=== PATIENT | male | born 1990 | race Caucasian/White ===

== ENCOUNTER 2018-11-20 17:01 | Emergency (ER) | payer OTHER, SELFPAY ==
[2018-11-20 17:03] VITALS: BP 137/76; PULSE 88; RESP 20; TEMP 36.5; O2SAT 97; BMI 29.2
--- NOTE | 2018-11-20 17:13 | DI.US.S_ITS ---
PROCEDURE: US PERIPH VENOUS LOW EXTREM RT INDICATIONS: flying, + right lower extrem pain swelling/ please go to US TECHNIQUE: Real-time imaging, as well as color and pulse Doppler interrogation, were performed of the lower extremity deep veins from the inguinal ligament to the popliteal fossa. COMPARISON: None. FINDINGS: There is occlusive thrombus within the popliteal vein extending to the posterior tibial vein. IMPRESSION: Right lower extremity DVT. Dictated by: Jass Jovel M.D. on 11/20/2018 at 18:25 Approved by: Jass Jovel M.D. on 11/20/2018 at 18:25
--- NOTE | 2018-11-20 20:10 | ED_ITS ---
HPI - Extremity Problem General Chief complaint: Extremity Problem,Nontraumatic Stated complaint: RT LEG PAIN - NO KNOWN INJURY Time Seen by Provider: 11/20/18 20:10 Related Data Home Medications Medication Instructions Recorded Confirmed No Known Home Medications 11/20/18 11/20/18 Allergies Allergy/AdvReac Type Severity Reaction Status Date / Time No Known Drug Allergies Allergy Verified 11/20/18 17:11 [facility] Social History Smoking Status: Current every day smoker Social History Smoking Status: Current every day smoker Exam Initial Vital Signs Initial Vital Signs: Vital Signs Temperature 97.7 F 11/20/18 17:03 Pulse Rate 88 11/20/18 17:03 Respiratory Rate 20 11/20/18 17:03 Blood Pressure 137/76 11/20/18 17:03 Pulse Oximetry 97 11/20/18 17:03 Course Orders Ordered: ED Orders 11/20/18 17:13 US periph venous low extrem rt Stat Vital Signs - 8 hr 11/20/18 17:03 Temperature 97.7 F Pulse Rate 88 Respiratory Rate 20 Blood Pressure 137/76 Pulse Oximetry 97 Discharge Plan Departure Prescriptions: No Action No Known Home Medications RF: 0
--- NOTE | 2018-11-20 20:12 | PC.NURSE ---
called from waiting room: no answer.
--- NOTE | 2018-11-20 20:15 | PC.NURSE ---
Called patient @ number listed and left message to call ED. I then emailed patient at email listed and asked him to call the ED and speak w/ charge nurse or provider on duty. Dr. Medina made aware.
--- NOTE | 2018-11-20 20:19 | PC.NURSE ---
at 2004 I was unable to locate him,Hina RAI placed call to his cell.
[2018-11-20 20:27] VITALS: PULSE 60
--- NOTE | 2018-11-20 20:43 | ED_ITS ---
HPI - Extremity Problem General Chief complaint: Extremity Problem,Nontraumatic Stated complaint: RT LEG PAIN - NO KNOWN INJURY Time Seen by Provider: 11/20/18 20:10 Source: patient Mode of arrival: ambulatory Limitations: no limitations History of Present Illness HPI Narrative: Patient is an otherwise healthy 28-year-old male who was sent over today by his [facility] for a right lower extremity DVT ultra sound. He went to go see his medical because he was having pain and swelling in his right lower extremity. He just recently had a 6 hour flight from [place] back to [place]. He denies any chest pain or shortness of breath. Has never had a blood clot in the past. He obtain that outpatient ultrasound which was resulted positive was told to come to the emergency department. Related Data Previous Rx's Medication Instructions Recorded rivaroxaban [Xarelto] 15 mg PO BID 21 Days #42 tab 11/20/18 Allergies Allergy/AdvReac Type Severity Reaction Status Date / Time No Known Drug Allergies Allergy Verified 11/20/18 17:11 Review of Systems Constitutional Denies fever(s) Cardiovascular Denies chest pain and Denies dyspnea Respiratory Denies dyspnea Gastrointestinal Gastrointestinal: Denies abdominal pain Musculoskeletal Comments: Right lower extremity pain and swelling Integumentary/Breasts Denies rash Neurologic Denies behavioral changes Psychiatric Denies behavioral changes Hematologic/Lymphatic Denies easy bleeding and Denies easy bruising [facility] Medical History Healthy adult (Acute) Social History Smoking Status: Current every day smoker Social History Smoking Status: Current every day smoker Exam Initial Vital Signs Initial Vital Signs: Vital Signs Temperature 97.7 F 11/20/18 17:03 Pulse Rate 88 11/20/18 17:03 Respiratory Rate 20 11/20/18 17:03 Blood Pressure 137/76 11/20/18 17:03 Pulse Oximetry 97 11/20/18 17:03 Resp Effort & Inspection: normal respiratory effort Cardio Rate: regular rate Skin Lesions: no lesions Rashes: no rashes Neuro General: alert and awake Cognition: normal cognition Speech: speech normal Gait: normal gait Extrem Other: Right knee and right ankle unremarkable. Right hip unremarkable. Patient does have swelling to the right lower extremity from the knee to his ankle. Psych Appearance: grossly normal and well kempt Course Orders Ordered: ED Orders 11/20/18 17:13 US periph venous low extrem rt Stat 11/20/18 20:58 Basic Metabolic Panel Stat Complete Blood Count AUTO DIFF Stat Partial Thromboplastin Time Stat Prothrombin Time INR Stat Discontinued Medications Rivaroxaban (Xarelto) 15 mg PO NOW ONE Stop: 11/20/18 20:46 Last Admin: 11/20/18 20:53 Dose: Not Given Rivaroxaban (Xarelto) 15 mg PO NOW ONE Stop: 11/20/18 20:52 Last Admin: 11/20/18 20:57 Dose: 15 mg Vital Signs - 8 hr 11/20/18 17:03 11/20/18 20:27 11/20/18 20:59 Temperature 97.7 F Pulse Rate 88 72 Pulse Rate [Right Dorsalis Pedis] 60 Respiratory Rate 20 14 Blood Pressure 137/76 Blood Pressure [Right Arm] 128/72 Pulse Oximetry 97 98 MDM - Extremity (Nontraumatic) Lab Data Result diagrams: 11/20/18 20:58 11/20/18 20:58 Lab Results 11/20/18 11/20/18 11/20/18 Range/Units 20:58 20:58 20:58 WBC 10.8 (4.5-11.0) X10^3/uL RBC 5.01 (4.5-5.9) X10^6/uL Hgb 15.3 (13.5-17.5) g/dL Hct 44.8 (41-53) % MCV 89.4 (80-100) fL MCH 30.6 (26-34) PG MCHC 34.2 (30-36) % RDW 12.2 (11.6-14.8) % Plt Count 271 (150-400) X10^3/uL Neut % (Auto) 64.6 (50-75) % Lymph % (Auto) 26.3 (25-40) % [place] % (Auto) 4.9 (3-14) % Eos % (Auto) 3.6 (2-4) % Baso % (Auto) 0.6 (0-2) % Neut # (Auto) 6900 (7988-9068) /uL Lymph # (Auto) 2800 (5111-4444) /uL [place] # (Auto) 500 (0-900) /uL Eos # (Auto) 400 (0-450) /uL Baso # (Auto) 100 (0-100) /uL PT 11.9 (10.1-12.7) SECONDS INR 1.0 (0.9-1.3) APTT 31 (26.4-36.2) SECONDS Sodium 138 (137-145) mmol/L Potassium 4.1 (3.4-5.1) mmol/L Chloride 101 (98-107) mmol/L Carbon Dioxide 27 (22-32) mmol/L BUN 17 (9-20) mg/dL Creatinine 1.00 (0.66-1.25) mg/dL Estimated GFR > 60.0 (>60) mL/min BUN/Creatinine Ratio 17.0 (6-22) Glucose 155 H (70-100) mg/dL Calcium 9.3 (8.4-10.2) mg/dL Imaging Data Venous US: Radiologist's impression: [address] [address] Ultrasound Report Signed Patient: Betito Elena [facility]#: [id number] : 1990Acct:[id number] Age/Sex: MDate of Service: 11/20/18 Loc: ED Accession Number: [id number] Procedure: US periph venous low extrem rt Ordering Provider: Alyce Harrington MD PROCEDURE: US PERIPH VENOUS LOW EXTREM RT INDICATIONS: flying, + right lower extrem pain swelling/ please go to US TECHNIQUE: Real-time imaging, as well as color and pulse Doppler interrogation, were performed of the lower extremity deep veins from the inguinal ligament to the popliteal fossa. COMPARISON: None. FINDINGS: There is occlusive thrombus within the popliteal vein extending to the posterior tibial vein. IMPRESSION: Right lower extremity DVT. Dictated by: Jass Jovel M.D. on 11/20/2018 at 18:25 Approved by: Jass Jovel M.D. on 11/20/2018 at 18:25 [facility] Narrative Medical decision making narrative: The ultrasound report included in this note is for reference his only. It was ordered by another provider as an outpatient study. The patient has never had a blood clot before. He did recently have a 6 hour flight which is most likely the cause of this DVT. He denies any chest pain or shortness of breath making PE unlikely. Patient was given 1st dose of Xarelto here in the emergency department was given a prescription for this. He was instructed that tomorrow he needed to talk with [place] any work-related restrictions and to change any medication as needed for [facility] pharmacy guidelines. There is no signs of cellulitis in his lower extremity he was given return precautions and follow-up instructions. He expressed understanding and agreement with plan Discharge Plan Departure Patient Disposition: Home Clinical Impression: Deep vein thrombosis of lower extremity Qualifiers: Affected thrombotic vein of extremity: unspecified vein of extremity Chronicity: acute Laterality: right Qualified Code(s): I82.401 - Acute embolism and thrombosis of unspecified deep veins of right lower extremity Discharge Date/Time: 11/20/18 21:14 Interventions: ED Discharge Assessment Last Done: 11/20/18 21:12 Instructions: DI for Deep Vein Thrombosis Activity Restrictions/Additional Instructions: Tomorrow you need to talk with your medical department about the clot in your right lower extremity and also the medications that the [facility] would prefer you to be on. The prescription that you were given today is only for the 1st 21 days of this medication however will need to be continued past that time. Return to the emergency department for any new symptoms to include chest pain, shortness o f breath, blood in her stool, abdominal pain, or any other concerning symptoms. Prescriptions: New Xarelto 15 mg tablet 15 mg PO BID 21 Days Qty: 42 RF: 0
[2018-11-20] MEDS: RIVAROXABAN 10 MG TABLET 15 MG PO (20:57)
[2018-11-20 20:59] VITALS: BP 128/72; PULSE 72; RESP 14; O2SAT 98
[2018-11-20 21:12] LABS: Add Manual Diff / Slide Review NO; Basophils Absolute Auto 100 /uL (0-100); Basophils Percent Auto 0.6 % (0-2); Eosinophils Absolute Auto 400 /uL (0-450); Eosinophils Percent Auto 3.6 % (2-4); Hematocrit 44.8 % (41-53); Hemoglobin 15.3 g/dL (13.5-17.5); Lymphocytes Absolute Auto 2800 /uL (1100-4500); Lymphocytes Percent Auto 26.3 % (25-40); Mean Corpuscular HGB Conc 34.2 % (30-36); Mean Corpuscular Hemoglobin 30.6 PG (26-34); Mean Corpuscular Volume 89.4 fL (80-100); Monocytes Absolute Auto 500 /uL (0-900); Monocytes Percent Auto 4.9 % (3-14); Neutrophils Absolute Auto 6900 /uL (1500-7000); Neutrophils Percent Auto 64.6 % (50-75); Platelet Count 271 X10^3/uL (150-400); Red Blood Cell Count 5.01 X10^6/uL (4.5-5.9); Red Cell Distribution Width 12.2 % (11.6-14.8); White Blood Cell Count 10.8 X10^3/uL (4.5-11.0)
[2018-11-20 21:14] LABS: Prothrombin Time 11.9 SECONDS (10.1-12.7)
[2018-11-20 21:17] LABS: PTT Partial Thromboplastin Tim 31 SECONDS (26.4-36.2)
[2018-11-20 21:26] LABS: Blood Urea Nitrogen 17 mg/dL (9-20); Calcium 9.3 mg/dL (8.4-10.2); Carbon Dioxide 27 mmol/L (22-32); Chloride 101 mmol/L (98-107); Estimated Glomerular Filt Rate > 60.0 mL/min (>60); Glucose 155 mg/dL (70-100); HEMOLYSIS < 15 (0-50); Potassium 4.1 mmol/L (3.4-5.1); Sodium 138 mmol/L (137-145)
== END 2018-11-20 21:14 | disposition home or self-care (01) ==
PROVIDERS: Emergency Provider Emergency Medicine
DX: I82.401 Acute embolism and thrombosis of unspecified deep veins of right lower extremity (principal)
CPT/HCPCS: 36415; 80048; 85025; 85610; 85730; 93971; 99282; 99284

== ENCOUNTER 2018-12-09 15:30 | Emergency (ER) | payer OTHER, SELFPAY ==
[2018-12-09 15:30] VITALS: BP 134/80; PULSE 58; RESP 18; TEMP 36.7; O2SAT 95; BMI 29.8
--- NOTE | 2018-12-09 15:40 | DI.RAD.S_ITS ---
PROCEDURE: XR CHEST 1V INDICATIONS: chest pain TECHNIQUE: One view of the chest was acquired. COMPARISON: [facility], CT, CT ANGIO CHEST PE PROTOCOL, 12/09/2018, 16:15. [facility], US, US PERIPH VENOUS LOW EXTREM RT, 11/20/2018, 17:29. FINDINGS: Surgical changes and devices: None. Lungs and pleura: An incomplete inspiratory result is noted, causing a crowded appearance to the lung markings. No focal infiltrates are seen. No pneumothorax or significant pleural effusions are seen. Mediastinum: Mediastinal contours appear normal. Heart size is normal. Bones and chest wall: No suspicious bony lesions. Overlying soft tissues appear unremarkable. IMPRESSION: Limited portable chest examination, without a significant cardiopulmonary abnormality identified. Dictated by: Arcenio Askew M.D. on 12/09/2018 at 15:33 Approved by: Arcenio Askew M.D. on 12/09/2018 at 15:33
--- NOTE | 2018-12-09 15:41 | DI.CT.S_ITS ---
PROCEDURE: CT ANGIO CHEST PE PROTOCOL INDICATIONS: chest pain, known DVT TECHNIQUE: After the administration of intravenous contrast, 2 mm thick sections acquired from the pulmonary apices to the posterior costophrenic angles. 3-dimensional maximum intensity projection (MIP) coronal and sagittal reformats were then acquired through the thorax. For radiation dose reduction, the following was used: automated exposure control, adjustment of mA and/or kV according to patient size. COMPARISON: [facility], CR, XR CHEST 1V, 12/09/2018, 16:04. Correlation is also made with lower extremity ultrasound dated 11/20/18. FINDINGS: Image quality: Excellent. Pulmonary arteries: Pulmonary arteries are normal in size, and demonstrate no intraluminal filling defects to suggest central pulmonary embolism. Lungs and pleura: Lungs are clear. No pleural effusions or pneumothorax. Central and peripheral airways are patent. Mediastinum: Heart size is normal, without pericardial effusion. No mediastinal or hilar adenopathy. Thoracic aorta is normal in caliber and enhancement. Esophagus is normal in caliber, without hiatal hernia. Bones and chest wall: No suspicious bony lesions. Ribs and thoracic spine appear intact throughout. Thyroid gland demonstrates no significant CT abnormality. No axillary or supraclavicular adenopathy. Abdomen: Visualized upper abdominal solid organs appear normal in the early arterial phase of enhancement. IMPRESSION: Negative for pulmonary embolism. Normal study. Dictated by: Arcenio Askew M.D. on 12/09/2018 at 15:30 Approved by: Arcenio Askew M.D. on 12/09/2018 at 15:31
[2018-12-09 15:56] LABS: Add Manual Diff / Slide Review NO; Basophils Absolute Auto 100 /uL (0-100); Basophils Percent Auto 0.6 % (0-2); Eosinophils Absolute Auto 500 /uL (0-450); Eosinophils Percent Auto 3.3 % (2-4); Hematocrit 44.1 % (41-53); Hemoglobin 15.1 g/dL (13.5-17.5); Lymphocytes Absolute Auto 2700 /uL (1100-4500); Lymphocytes Percent Auto 18.1 % (25-40); Mean Corpuscular HGB Conc 34.2 % (30-36); Mean Corpuscular Hemoglobin 30.5 PG (26-34); Mean Corpuscular Volume 89.2 fL (80-100); Monocytes Absolute Auto 800 /uL (0-900); Monocytes Percent Auto 5.6 % (3-14); Neutrophils Absolute Auto 10700 /uL (1500-7000); Neutrophils Percent Auto 72.4 % (50-75); Platelet Count 272 X10^3/uL (150-400); Red Blood Cell Count 4.95 X10^6/uL (4.5-5.9); Red Cell Distribution Width 12.6 % (11.6-14.8); White Blood Cell Count 14.8 X10^3/uL (4.5-11.0)
[2018-12-09 16:00] VITALS: BP 122/75
[2018-12-09 16:01] LABS: INR 1.6 (0.9-1.3); Prothrombin Time 18.6 SECONDS (10.1-12.7)
[2018-12-09 16:03] LABS: PTT Partial Thromboplastin Tim 36 SECONDS (26.4-36.2)
[2018-12-09 16:08] LABS: Alanine Aminotransferase 30 IU/L (21-72); Albumin 4.4 g/dL (3.5-5.0); Albumin Globulin Ratio 1.4 (1.0-2.8); Alkaline Phosphatase 74 U/L (38-126); Aspartate Aminotransferase 23 IU/L (17-59); Bilirubin Total 0.4 mg/dL (0.2-1.3); Blood Urea Nitrogen 15 mg/dL (9-20); Calcium 9.8 mg/dL (8.4-10.2); Carbon Dioxide 25 mmol/L (22-32); Chloride 106 mmol/L (98-107); Creatine Kinase 77 U/L (55-170); Estimated Glomerular Filt Rate > 60.0 mL/min (>60); Globulin 3.2 g/dL (1.7-4.1); Glucose 101 mg/dL (70-100); HEMOLYSIS < 15 (0-50); Lipase 95 U/L (23-300); Potassium 4.5 mmol/L (3.4-5.1); Sodium 139 mmol/L (137-145); Total Protein 7.6 g/dL (6.3-8.2)
[2018-12-09 16:19] LABS: Troponin I < 0.012 ng/mL (0.01-0.034)
[2018-12-09 17:15] VITALS: BP 121/65; PULSE 59; RESP 18
[2018-12-09 18:13] VITALS: BP 113/67; PULSE 72; RESP 15; O2SAT 96
--- NOTE | 2018-12-09 18:17 | ED.CHESTPAIN ---
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 He denies any recent injury or overuse. He denies associated symptoms such as dizziness, weakness or lightheadedness. He denies cough, shortness of breath or hemoptysis. He denies missing any doses of his medications. His pain started earlier this morning and he states it is sharp and stabbing and worse with use of his right arm and deep breaths. MD complaint: chest pain Related Data Previous Rx's Medication Instructions Recorded rivaroxaban [Xarelto] 15 mg PO BID 21 Days #42 tab 11/20/18 Allergies Allergy/AdvReac Type Severity Reaction Status Date / Time No Known Drug Allergies Allergy Verified 11/20/18 17:11 Review of Systems Constitutional Denies chills, Denies fever(s), Denies lethargy and Denies weakness Eyes Denies change in vision, Denies eye discharge, Denies irritation and Denies loss of vision ENT Ears, Nose, Mouth, and Throat: Denies change in voice, Denies neck pain and Denies sore throat Cardiovascular Reports chest pain, Denies irregular heart rhythm, Denies lightheadedness, Denies palpitations, Denies dyspnea, Denies dyspnea on exertion and Denies orthopnea Respiratory Denies cough, Denies dyspnea, Denies dyspnea on exertion and Denies wheezing Gastrointestinal Gastrointestinal: Denies abdominal pain, Denies change in bowel habits, Denies diarrhea, Denies nausea and Denies vomiting Genitourinary Denies hematuria, Denies flank pain, Denies urinary incontinence and Denies urinary urgency Musculoskeletal Denies neck pain Integumentary/Breasts Denies pruritus, Denies erythema, Denies rash and Denies wounds Neurologic Denies confusion, Denies loss of vision and Denies weakness Psychiatric Denies anxiety, Denies confusion, Denies depression, Denies homicidal ideation and Denies suicidal ideation Endocrine Denies palpitations Hematologic/Lymphatic Denies easy bruising Allergic/Immunologic Denies wheezing [facility] Medical History (Updated 12/10/18 @ 00:27 by Mahesh Anton DO) DVT (deep venous thrombosis) (Acute) Healthy adult (Acute) Social History Smoking Status: Current every day smoker Social History Smoking Status: Current every day smoker Exam Narrative Exam Narrative: GENERAL: 28-year-old male, resting comfortably HEAD: Atraumatic. Normocephalic. No temporal or scalp tenderness. EYES: Pupils equal round and reactive. Extraocular motions intact. No scleral icterus. No injection or drainage. ENT: Nose without bleeding, purulent drainage or septal hematoma. Throat without erythema, tonsillar hypertrophy or exudate. Uvula midline. Airway patent. NECK: Trachea midline. No JVD or lymphadenopathy. Supple, nontender, no meningeal signs. CARDIOVASCULAR: Sharp chest pain to palpation of right anterior chest Regular rate and rhythm without murmurs, gallops, or rubs. RESPIRATORY: Clear to auscultation. Breath sounds equal bilaterally. No wheezes, rales, or rhonchi. GASTROINTESTINAL: Abdomen soft, non-tender, nondistended. No hepato-splenomegaly, or palpable masses. No guarding. EXTREMITIES: No clubbing, cyanosis, or edema. No joint tenderness, effusion, or edema noted. BACK: Nontender without deformity or crepitance. No flank tenderness. NEURO: AOx3. SKIN: No rash or erythema. Initial Vital Signs Initial Vital Signs: Vital Signs Temperature 98.1 F 12/09/18 15:30 Pulse Rate 58 L 12/09/18 15:30 Respiratory Rate 18 12/09/18 15:30 Blood Pressure 134/80 12/09/18 15:30 Pulse Oximetry 95 12/09/18 15:30 Course Orders Ordered: ED Orders 12/09/18 15:40 XR chest 1V Stat Complete Blood Count AUTO DIFF Stat Comprehensive Metabolic Panel Stat Lipase Stat Partial Thromboplastin Time Stat Prothrombin Time INR Stat Troponin & CK Cardiac Panel Stat EKG-12 Lead Stat 12/09/18 15:41 CT angio chest PE protocol Stat 12/09/18 18:34 EKG-12 Lead Stat Vital Signs - 8 hr 12/09/18 17:15 12/09/18 18:13 Pulse Rate 59 L 72 Respiratory Rate 18 15 Blood Pressure [Right Arm] 121/65 113/67 Pulse Oximetry 96 MDM - Chest Pain Lab Data Result diagrams: 12/09/18 15:40 12/09/18 15:40 Lab Results 12/09/18 12/09/18 12/09/18 Range/Units 15:40 15:40 15:40 WBC 14.8 H (4.5-11.0) X10^3/uL RBC 4.95 (4.5-5.9) X10^6/uL Hgb 15.1 (13.5-17.5) g/dL Hct 44.1 (41-53) % MCV 89.2 (80-100) fL MCH 30.5 (26-34) PG MCHC 34.2 (30-36) % RDW 12.6 (11.6-14.8) % Plt Count 272 (150-400) X10^3/uL Neut % (Auto) 72.4 (50-75) % Lymph % (Auto) 18.1 L (25-40) % [place] % (Auto) 5.6 (3-14) % Eos % (Auto) 3.3 (2-4) % Baso % (Auto) 0.6 (0-2) % Neut # (Auto) 77808 H (1165-7524) /uL Lymph # (Auto) 2700 (3940-6115) /uL [place] # (Auto) 800 (0-900) /uL Eos # (Auto) 500 H (0-450) /uL Baso # (Auto) 100 (0-100) /uL PT 18.6 H (10.1-12.7) SECONDS INR 1.6 H (0.9-1.3) APTT 36 D (26.4-36.2) SECONDS Sodium 139 (137-145) mmol/L Potassium 4.5 (3.4-5.1) mmol/L Chloride 106 (98-107) mmol/L Carbon Dioxide 25 (22-32) mmol/L BUN 15 (9-20) mg/dL Creatinine 1.00 (0.66-1.25) mg/dL Estimated GFR > 60.0 (>60) mL/min BUN/Creatinine Ratio 15.0 (6-22) Glucose 101 H (70-100) mg/dL Calcium 9.8 (8.4-10.2) mg/dL Total Bilirubin 0.4 (0.2-1.3) mg/dL AST 23 (17-59) IU/L ALT 30 (21-72) IU/L Alkaline Phosphatase 74 (38-126) U/L Total Creatine Kinase 77 (55-170) U/L CK-MB (CK-2) TNP CK-MB (CK-2) Rel Index TNP Troponin I < 0.012 (0.01-0.034) ng/mL Total Protein 7.6 (6.3-8.2) g/dL Albumin 4.4 (3.5-5.0) g/dL Globulin 3.2 (1.7-4.1) g/dL Albumin/Globulin Ratio 1.4 (1.0-2.8) Lipase 95 (23-300) U/L Imaging Data CT scan - chest: Radiologist's impression: Betito Elena 28 M [address] [address] [address] Scan Report Signed Patient: Betito Elena MMR#: [id number] : 1990Acct:[id number] Age/Sex: te of Service: 12/09/18 Loc: ED Accession Number: [id number] Procedure: CT angio chest PE protocol Ordering Provider: Yuly Morales D.O. PROCEDURE: CT ANGIO CHEST PE PROTOCOL INDICATIONS: chest pain, known DVT TECHNIQUE: After the administration of intravenous contrast, 2 mm thick sections acquired from the pulmonary apices to the posterior costophrenic angles. 3-dimensional maximum intensity projection (MIP) coronal and sagittal reformats were then acquired through the thorax. For radiation dose reduction, the following was used: automated exposure control, adjustment of mA and/or kV according to patient size. COMPARISON: [facility], CR, XR CHEST 1V, 12/09/2018, 16:04. Correlation is also made with lower extremity ultrasound dated 11/20/18. FINDINGS: Image quality: Excellent. Pulmonary arteries: Pulmonary arteries are normal in size, and demonstrate no intraluminal filling defects to suggest central pulmonary embolism. Lungs and pleura: Lungs are clear. No pleural effusions or pneumothorax. Central and peripheral airways are patent. Mediastinum: Heart size is normal, without pericardial effusion. No mediastinal or hilar adenopathy. Thoracic aorta is normal in caliber and enhancement. Esophagus is normal in caliber, without hiatal hernia. Bones and chest wall: No suspicious bony lesions. Ribs and thoracic spine appear intact throughout. Thyroid gland demonstrates no significant CT abnormality. No axillary or supraclavicular adenopathy. Abdomen: Visualized upper abdominal solid organs appear normal in the early arterial phase of enhancement. IMPRESSION: Negative for pulmonary embolism. Normal study. Dictated by: Arcenio Askew M.D. on 12/09/2018 at 15:30 Approved by: Arcenio Askew M.D. on 12/09/2018 at 15:31 MDM Narrative Medical decision making narrative: Multiple etiologies for patient's symptoms considered including: [Pulmonary embolism but thought less likely given negative CT angiogram. Coronary artery disease but thought less likely given lack of vomiting, radiation of pain, diaphoresis, worsening with exertion, ischemic changes on EKG and negative troponin. Musculoskeletal considerations thought most likely given reproducible sharp and stabbing pain with lack of other findings] Patient's symptoms improved or duration of stay with above-stated therapies. Findings and discharge diagnosis discussed with patient/family followed by verbalization of understanding Return precautions discussed with patient/family whom verbalize understanding. Discharge Plan Departure Patient Disposition: Home Clinical Impression: Atypical chest pain Discharge Date/Time: 12/09/18 18:58 Interventions: ED Discharge Assessment Last Done: 12/09/18 18:56 Instructions: DI for Atypical Chest Pain Activity Restrictions/Additional Instructions: *You have been diagnosed with [ atypical chest pain ] *What to do: *Take medications as directed *Follow up with your primary care provider in 2-3 days, call for an appointment. Let them know you were seen in the Emergency Department and that we ask that you be seen in follow up *Return to ER if you should have any new, worsening or concerning symptoms Prescriptions: No Action Xarelto 15 mg tablet 15 mg PO BID 21 Days Qty: 42 RF: 0
--- NOTE | 2018-12-09 18:21 | ED_ITS ---
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 He denies any recent injury or overuse. He denies associated symptoms such as dizziness, weakness or lightheadedness. He denies cough, shortness of breath or hemoptysis. He denies missing any doses of his medications. His pain started earlier this morning and he states it is sharp and stabbing and worse with use of his right arm and deep breaths. MD complaint: chest pain Related Data Previous Rx's Medication Instructions Recorded rivaroxaban [Xarelto] 15 mg PO BID 21 Days #42 tab 11/20/18 Allergies Allergy/AdvReac Type Severity Reaction Status Date / Time No Known Drug Allergies Allergy Verified 11/20/18 17:11 Review of Systems Constitutional Denies chills, Denies fever(s), Denies lethargy and Denies weakness Eyes Denies change in vision, Denies eye discharge, Denies irritation and Denies loss of vision ENT Ears, Nose, Mouth, and Throat: Denies change in voice, Denies neck pain and Denies sore throat Cardiovascular Reports chest pain, Denies irregular heart rhythm, Denies lightheadedness, Denies palpitations, Denies dyspnea, Denies dyspnea on exertion and Denies orthopnea Respiratory Denies cough, Denies dyspnea, Denies dyspnea on exertion and Denies wheezing Gastrointestinal Gastrointestinal: Denies abdominal pain, Denies change in bowel habits, Denies diarrhea, Denies nausea and Denies vomiting Genitourinary Denies hematuria, Denies flank pain, Denies urinary incontinence and Denies urinary urgency Musculoskeletal Denies neck pain Integumentary/Breasts Denies pruritus, Denies erythema, Denies rash and Denies wounds Neurologic Denies confusion, Denies loss of vision and Denies weakness Psychiatric Denies anxiety, Denies confusion, Denies depression, Denies homicidal ideation and Denies suicidal ideation Endocrine Denies palpitations Hematologic/Lymphatic Denies easy bruising Allergic/Immunologic Denies wheezing [facility] Medical History (Updated 12/10/18 @ 00:27 by Mahesh Anton DO) DVT (deep venous thrombosis) (Acute) Healthy adult (Acute) Social History Smoking Status: Current every day smoker Social History Smoking Status: Current every day smoker Exam Narrative Exam Narrative: GENERAL: 28-year-old male, resting comfortably HEAD: Atraumatic. Normocephalic. No temporal or scalp tenderness. EYES: Pupils equal round and reactive. Extraocular motions intact. No scleral icterus. No injection or drainage. ENT: Nose without bleeding, purulent drainage or septal hematoma. Throat without erythema, tonsillar hypertrophy or exudate. Uvula midline. Airway patent. NECK: Trachea midline. No JVD or lymphadenopathy. Supple, nontender, no meningeal signs. CARDIOVASCULAR: Sharp chest pain to palpation of right anterior chest Regular rate and rhythm without murmurs, gallops, or rubs. RESPIRATORY: Clear to auscultation. Breath sounds equal bilaterally. No wheezes, rales, or rhonchi. GASTROINTESTINAL: Abdomen soft, non-tender, nondistended. No hepato- splenomegaly, or palpable masses. No guarding. EXTREMITIES: No clubbing, cyanosis, or edema. No joint tenderness, effusion, or edema noted. BACK: Nontender without deformity or crepitance. No flank tenderness. NEURO: AOx3. SKIN: No rash or erythema. Initial Vital Signs Initial Vital Signs: Vital Signs Temperature 98.1 F 12/09/18 15:30 Pulse Rate 58 L 12/09/18 15:30 Respiratory Rate 18 12/09/18 15:30 Blood Pressure 134/80 12/09/18 15:30 Pulse Oximetry 95 12/09/18 15:30 Course Orders Ordered: ED Orders 12/09/18 15:40 XR chest 1V Stat Complete Blood Count AUTO DIFF Stat Comprehensive Metabolic Panel Stat Lipase Stat Partial Thromboplastin Time Stat Prothrombin Time INR Stat Troponin & CK Cardiac Panel Stat EKG-12 Lead Stat 12/09/18 15:41 CT angio chest PE protocol Stat 12/09/18 18:34 EKG-12 Lead Stat Vital Signs - 8 hr 12/09/18 17:15 12/09/18 18:13 Pulse Rate 59 L 72 Respiratory Rate 18 15 Blood Pressure [Right Arm] 121/65 113/67 Pulse Oximetry 96 MDM - Chest Pain Lab Data Result diagrams: 12/09/18 15:40 12/09/18 15:40 Lab Results 12/09/18 12/09/18 12/09/18 Range/Units 15:40 15:40 15:40 WBC 14.8 H (4.5-11.0) X10^3/uL RBC 4.95 (4.5-5.9) X10^6/uL Hgb 15.1 (13.5-17.5) g/dL Hct 44.1 (41-53) % MCV 89.2 (80-100) fL MCH 30.5 (26-34) PG MCHC 34.2 (30-36) % RDW 12.6 (11.6-14.8) % Plt Count 272 (150-400) X10^3/uL Neut % (Auto) 72.4 (50-75) % Lymph % (Auto) 18.1 L (25-40) % [place] % (Auto) 5.6 (3-14) % Eos % (Auto) 3.3 (2-4) % Baso % (Auto) 0.6 (0-2) % Neut # (Auto) 81789 H (5279-0354) /uL Lymph # (Auto) 2700 (1119-7542) /uL [place] # (Auto) 800 (0-900) /uL Eos # (Auto) 500 H (0-450) /uL Baso # (Auto) 100 (0-100) /uL PT 18.6 H (10.1-12.7) SECONDS INR 1.6 H (0.9-1.3) APTT 36 D (26.4-36.2) SECONDS Sodium 139 (137-145) mmol/L Potassium 4.5 (3.4-5.1) mmol/L Chloride 106 (98-107) mmol/L Carbon Dioxide 25 (22-32) mmol/L BUN 15 (9-20) mg/dL Creatinine 1.00 (0.66-1.25) mg/dL Estimated GFR > 60.0 (>60) mL/min BUN/Creatinine Ratio 15.0 (6-22) Glucose 101 H (70-100) mg/dL Calcium 9.8 (8.4-10.2) mg/dL Total Bilirubin 0.4 (0.2-1.3) mg/dL AST 23 (17-59) IU/L ALT 30 (21-72) IU/L Alkaline Phosphatase 74 (38-126) U/L Total Creatine Kinase 77 (55-170) U/L CK-MB (CK-2) TNP CK-MB (CK-2) Rel Index TNP Troponin I < 0.012 (0.01-0.034) ng/mL Total Protein 7.6 (6.3-8.2) g/dL Albumin 4.4 (3.5-5.0) g/dL Globulin 3.2 (1.7-4.1) g/dL Albumin/Globulin Ratio 1.4 (1.0-2.8) Lipase 95 (23-300) U/L Imaging Data CT scan - chest: Radiologist's impression: Betito Elena 28 M [address] [address] [address] Scan Report Signed Patient: Betito Elena MMR#: [id number] : 1990Acct:[id number] Age/Sex: te of Service: 12/09/18 Loc: ED Accession Number: [id number] Procedure: CT angio chest PE protocol Ordering Provider: Yuly Morales D.O. PROCEDURE: CT ANGIO CHEST PE PROTOCOL INDICATIONS: chest pain, known DVT TECHNIQUE: After the administration of intravenous contrast, 2 mm thick sections acquired from the pulmonary apices to the posterior costophrenic angles. 3-dimensional maximum intensity projection (MIP) coronal and sagittal reformats were then acquired through the thorax. For radiation dose reduction, the following was used: automated exposure control, adjustment of mA and/or kV according to patient size. COMPARISON: [facility], CR, XR CHEST 1V, 12/09/2018, 16:04. Correlation is also made with lower extremity ultrasound dated 11/20/18. FINDINGS: Image quality: Excellent. Pulmonary arteries: Pulmonary arteries are normal in size, and demonstrate no intraluminal filling defects to suggest central pulmonary embolism. Lungs and pleura: Lungs are clear. No pleural effusions or pneumothorax. Central and peripheral airways are patent. Mediastinum: Heart size is normal, without pericardial effusion. No mediastinal or hilar adenopathy. Thoracic aorta is normal in caliber and enhancement. Esophagus is normal in caliber, without hiatal hernia. Bones and chest wall: No suspicious bony lesions. Ribs and thoracic spine appear intact throughout. Thyroid gland demonstrates no significant CT abnormality. No axillary or supraclavicular adenopathy. Abdomen: Visualized upper abdominal solid organs appear normal in the early arterial phase of enhancement. IMPRESSION: Negative for pulmonary embolism. Normal study. Dictated by: Arcenio Askew M.D. on 12/09/2018 at 15:30 Approved by: Arcenio Askew M.D. on 12/09/2018 at 15:31 MDM Narrative Medical decision making narrative: Multiple etiologies for patient's symptoms considered including: [Pulmonary embolism but thought less likely given negative CT angiogram. Coronary artery disease but thought less likely given lack of vomiting, radiation of pain, diaphoresis, worsening with exertion, ischemic guaman ges on EKG and negative troponin. Musculoskeletal considerations thought most likely given reproducible sharp and stabbing pain with lack of other findings] Patient's symptoms improved or duration of stay with above-stated therapies. Findings and discharge diagnosis discussed with patient/family followed by verbalization of understanding Return precautions discussed with patient/family whom verbalize understanding. Discharge Plan Departure Patient Disposition: Home Clinical Impression: Atypical chest pain Discharge Date/Time: 12/09/18 18:58 Interventions: ED Discharge Assessment Last Done: 12/09/18 18:56 Instructions: DI for Atypical Chest Pain Activity Restrictions/Additional Instructions: *You have been diagnosed with [ atypical chest pain ] *What to do: *Take medications as directed *Follow up with your primary care provider in 2-3 days, call for an appointment. Let them know you were seen in the Emergency Department and that we ask that you be seen in follow up *Return to ER if you should have any new, worsening or concerning symptoms Prescriptions: No Action Xarelto 15 mg tablet 15 mg PO BID 21 Days Qty: 42 RF: 0
== END 2018-12-09 18:58 | disposition home or self-care (01) ==
PROVIDERS: Emergency Medicine; Emergency Provider Emergency Medicine
DX: R07.89 Other chest pain (principal); Z86.718 Personal history of other venous thrombosis and embolism; Z79.01 Long term (current) use of anticoagulants
CPT/HCPCS: 36591; 71045; 71275; 80053; 82550; 83690; 84484; 85025; 85610; 85730; 93005; 93010; 99283; 99285; Q9967